=== PATIENT | female | born 1990 | race Caucasian/White ===

== ENCOUNTER 2016-11-13 15:46 | Emergency (ER) | payer MEDICAID ==
[~2016-11-13] VITALS: Ht 160 cm; Wt 44.2 kg
[2016-11-13 18:49] VITALS: BP 109/72
== END 2016-11-13 18:49 | disposition left against medical advice (07) ==
LOC: ED 15:46
DX: Z53.21 Procedure and treatment not carried out due to patient leaving prior to being seen by health care provider (principal)

== ENCOUNTER 2016-11-15 19:10 | Emergency (ER) | payer MEDICAID ==
[2016-11-15 21:35] VITALS: BP 112/66
== END 2016-11-15 21:35 | disposition home or self-care (01) ==
LOC: ED 19:10
DX: S20.212A Contusion of left front wall of thorax, initial encounter (principal); M62.830 Muscle spasm of back; V49.9XXA Car occupant (driver) (passenger) injured in unspecified traffic accident, initial encounter; Y93.89 Activity, other specified; Y99.8 Other external cause status; Y92.89 Other specified places as the place of occurrence of the external cause
CPT/HCPCS: 20552; J2001; Q0092

== ENCOUNTER 2017-03-25 19:58 | Emergency (ER) | payer OTHER, MEDICAID ==
[2017-03-26 01:35] VITALS: BP 104/64
== END 2017-03-26 01:35 | disposition home or self-care (01) ==
LOC: ED 19:58
DX: O26.891 Other specified pregnancy related conditions, first trimester (principal); K21.9 Gastro-esophageal reflux disease without esophagitis
CPT/HCPCS: Q0162

== ENCOUNTER 2018-11-11 09:19 | Emergency (ER) | payer OTHER ==
[~2018-11-11] VITALS: Ht 160 cm; Wt 45.4 kg
[2018-11-11 09:28] VITALS: BP 108/65; Ht 160 cm; Wt 45.4 kg
== END 2018-11-11 10:20 | disposition home or self-care (01) ==
LOC: ED 09:19
DX: J02.9 Acute pharyngitis, unspecified (principal); R11.10 Vomiting, unspecified